=== PATIENT | male | born 1945 | race Caucasian/White ===

== ENCOUNTER 2019-06-14 07:16 | Day surgery (SDC) | payer MEDICARE, BC ==
[~2019-06-14 07:16] MED LIST: Lactated Ringers 1,000 ML IV SCH; Lidocaine 1%/Sod Bicarbonate in NS 8.4% 1 ML Syringe IDERM PRN; Sodium Chloride 0.9% 10 ML Syringe FLUSH PRN
[2019-06-14] MEDS ORDERED: Lidocaine 1% 4 ML ONE (07:31)
[2019-06-14] MEDS ORDERED: fentaNYL 100 MCG/2 ML SDV ONE (07:31)
[2019-06-14] MEDS ORDERED: Propofol 200 MG/20 ML SDV ONE ×2 (07:31→08:50)
--- NOTE | 2019-06-14 08:02 | PCM.PREANE ---
Preanesthetic Assessment - Anesthesia/Transfusion/Family Hx Anesthesia History: Prior Anesthesia Without Reaction Family History of Anesthesia Reaction: No - Review of Systems General: No Symptoms Pulmonary: No Symptoms Cardiovascular: No Symptoms Gastrointestinal: No Symptoms Neurological: No Symptoms Other: Reports: None - Physical Assessment NPO Status Date: 06/14/19 NPO Status Time: 03:50 Vital Signs: Last Vital Signs Temp 36.8 C 06/14/19 07:20 Pulse 89 06/14/19 07:20 Resp 16 06/14/19 07:20 BP 118/72 06/14/19 07:20 Pulse Ox 96 06/14/19 07:20 Height: 1.7 m Weight: 67.585 kg ASA Class: 1 Mental Status: Alert & Oriented x3 Airway Class: Mallampati = 2 Dentition: Reports: Partial (Upper) Thyro-Mental Finger Breadths: 3 Mouth Opening Finger Breadths: 3 ROM/Head Extension: Full Lungs: Clear to Auscultation, Normal Respiratory Effort Cardiovascular: Regular Rate, Regular Rhythm - Allergies Allergies/Adverse Reactions: Allergies Allergy/AdvReac Type Severity Reaction Status Date / Time No Known Allergies Allergy Verified 06/11/19 12:48 - Acknowledgements Anesthesia Type Planned: MAC Pt an Appropriate Candidate for the Planned Anesthesia: Yes Alternatives and Risks of Anesthesia Discussed w Pt/Guardian: Yes Pt/Guardian Understands and Agrees with Anesthesia Plan: Yes PreAnesthesia Questionnaire HEENT History: Reports: Impaired Vision Other HEENT History: wears glasses, has partial Cardiovascular History: Reports: None Respiratory History: Reports: None Gastrointestinal History: Reports: Colon Polyp Genitourinary History: Reports: None 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 Musculoskeletal History: Reports: None Neurological History: Reports: None Psychiatric History: Reports: None Endocrine/Metabolic History: Reports: None Hematologic History: Reports: None Immunologic History: Reports: None Oncologic (Cancer) History: Reports: None Dermatologic History: Reports: None - Past Surgical History Head Surgeries/Procedures: Reports: None HEENT Surgical History: Reports: Tonsillectomy Cardiovascular Surgical History: Reports: None Respiratory Surgical History: Reports: None GI Surgical History: Reports: Colonoscopy Female Surgical History: Reports: None Male Surgical History: Reports: None Endocrine Surgical History: Reports: None Neurological Surgical History: Reports: None Oncologic Surgical History: Reports: None Dermatological Surgical History: Reports: None - SUBSTANCE USE Smoking Status *Q: Never Smoker Recreational Drug Use History: No - HOME MEDS Home Medications: Home Meds Aloe Vera 5,000 mg PO DAILY 06/11/19 [History] Cholecalciferol (Vitamin D3) [Vitamin D3] 2,000 unit PO DAILY 06/11/19 [History] Cyanocobalamin (Vitamin B12) [Vitamin B12] 1,000 mcg PO DAILY 06/11/19 [History] Docusate Sodium [Colace] 100 mg PO DAILY 06/11/19 [History] Fish Oil/[place]-3 Fatty Acids [Fish Oil 1,000 MG] 1 each PO DAILY 06/11/19 [ History] Lactobacillus Acidophilus [Probiotic] 1 each PO DAILY 06/11/19 [History] Magnesium 250 mg PO DAILY 06/11/19 [History] Vitamin E 400 unit PO DAILY 06/11/19 [History] - CURRENT (IN HOUSE) MEDS Current Meds: Current Medications Lactated Ringer's (Ringers, Lactated) 1,000 mls @ 125 mls/hr IV ASDIRECTED TREVOR Stop: 06/14/19 23:00 Last Admin: 06/14/19 07:35 Dose: 125 mls/hr Lidocaine/Sodium Bicarbonate (Buffered Lidocaine 1% In Ns 8.4%) 0.25 ml IDERM ONETIME PRN PRN Reason: Prior to IV Start Stop: 06/14/19 18:00 Last Admin: 06/14/19 07:35 Dose: 0.25 ml Sodium Chloride (Saline Flush) 10 ml FLUSH ASDIRECTED PRN PRN Reason: Keep Vein Open Stop: 06/14/19 18:00 Discontinued Medications Fentanyl (Sublimaze) Confirm Administered Dose 100 mcg .ROUTE .STK-MED ONE Stop: 06/14/19 07:32 Lidocaine HCl (Xylocaine-Mpf 1%) Confirm Administered Dose 4 mls @ as directed .ROUTE .STK-MED ONE Stop: 06/14/19 07:32 Propofol (Diprivan 20 Ml) Confirm Administered Dose 400 mg .ROUTE .STK-MED ONE Stop: 06/14/19 07:32
--- NOTE | 2019-06-14 09:20 | PCM.PRNOTE ---
- Free Text/Narrative Note: Date: 06/14/2019 Procedure: colonoscopy Endoscopist: Duke Rebollar MD Findings: two adjacent polyps in the cecum near the ileocecal valve snare biopsied. Diminutive polyp further distal in the cecum biopsied. Near the hepatic flexure, there was a sizeable raised, lobulated and indurated lesion with abnormal mucosal appearance and central ulceration suspicious for malignancy. Several sample biopsies were obtained with forceps and submucosal injection of tattoo ink just distal to the lesion was performed. The prep was fair. There was moderate diverticular disease of the sigmoid colon noted. Detailed Report: The patient was taken to the endoscopy suite and placed in left lateral decubitus position. Timeout was performed, monitored anesthesia care was initiated. The anus was inspected, with no gross abnormalities noted. Digital rectal exam was unremarkable, no lesions were palpated, the prostate felt normal. A lubricated colonoscope was then inserted and advanced all the way to the cecum. The ileocecal valve was visualized. The prep was noted to be fair, with moderate amount of debris. 2 adjacent larger polypoid lesions were noted in the cecum near the ileocecal valve; these were biopsied with a snare. A tiny subcentimeter polyp just distal to this site was biopsied with forceps, and the base was fulgurated. At approximately the level of the hepatic flexure , there was a large abnormal lesion noted. There was ulceration at center, with active hemorrhage from recent scope trauma. Surrounding the ulcer, was an irregular lobulated mucosal appearance with induration. The base of the lesion blended in with the wall of the colon. Several sample biopsies with forceps were obtained from different parts of the lesion. Due to suspicion for malignancy, tattoo ink was injected just distal to the site of the lesion submucosally. No additional lesions were noted aside from sigmoid diverticular disease on withdrawal of the scope. Retroflexion of the scope within the rectum revealed no significant hemorrhoidal disease or other pathology. The patient tolerated the procedure well. Duke Rebollar MD General Surgery
--- NOTE | 2019-06-14 09:59 | PCM48HPAN ---
Post Anesthesia Note - EVALUATION WITHIN 48HRS OF ANESTHETIC Vital Signs in Normal Range: Yes Patient Participated in Evaluation: Yes Respiratory Function Stable: Yes Airway Patent: Yes Cardiovascular Function Stable: Yes Hydration Status Stable: Yes Pain Control Satisfactory: Yes Nausea and Vomiting Control Satisfactory: Yes Mental Status Recovered: Yes Vital Signs: Last Vital Signs Temp 36.2 C 06/14/19 09:15 Pulse 81 06/14/19 09:15 Resp 16 06/14/19 09:15 BP 106/72 06/14/19 09:15 Pulse Ox 94 L 06/14/19 09:15
== END 2019-06-14 10:05 | disposition home or self-care (01) ==
LOC: JD.SDS 07:16
PROVIDERS: ATTEND Surgery
DX: Z12.11 Encounter for screening for malignant neoplasm of colon (principal); D12.0 Benign neoplasm of cecum; C18.3 Malignant neoplasm of hepatic flexure; Z86.010 Personal history of colon polyps; Z87.891 Personal history of nicotine dependence; Z79.899 Other long term (current) drug therapy
CPT/HCPCS: 45381; 45385; J2001; J2704; J3010; J7120; 00812; 45380

== ENCOUNTER 2019-07-13 07:11 | Inpatient (IN) | payer MEDICARE, BC ==
[~2019-07-13 07:11] MED LIST changes: +Heparin Sodium 5,000 Units/ML Vial SUBCUT SCH
[2019-07-13] MEDS ORDERED: Bupivacaine 0.5%/EPINEPHrine 1:200,000 50 ML MDV ONE (07:19)
[2019-07-13] MEDS ORDERED: Rocuronium 50 MG/5 ML Vial ONE (07:29)
[2019-07-13] MEDS ORDERED: Propofol 200 MG/20 ML SDV ONE (07:30)
[2019-07-13] MEDS ORDERED: Midazolam 1 MG/ML 2 ML SDV ONE (07:31)
[2019-07-13] MEDS ORDERED: fentaNYL 100 MCG/2 ML SDV ONE ×2 (07:33→08:49)
--- NOTE | 2019-07-13 07:49 | PCM.PREANE ---
Preanesthetic Assessment - Anesthesia/Transfusion/Family Hx Anesthesia History: Prior Anesthesia Without Reaction Transfusion History: No Prior Transfusion(s) Intubation History: Unknown - Review of Systems General: No Symptoms Pulmonary: No Symptoms Cardiovascular: No Symptoms Gastrointestinal: No Symptoms Neurological: No Symptoms Other: Reports: None - Physical Assessment NPO Status Date: 07/12/19 NPO Status Time: 22:00 Vital Signs: Last Vital Signs Temp 98.0 F 07/13/19 07:20 Pulse 86 07/13/19 07:20 Resp 16 07/13/19 07:20 BP 115/71 07/13/19 07:20 Pulse Ox 97 07/13/19 07:20 Height: 1.7 m Weight: 64.864 kg ASA Class: 2 Mental Status: Alert & Oriented x3 Airway Class: Mallampati = 2 Dentition: Reports: Broken Tooth/Teeth, Missing Tooth/Teeth Thyro-Mental Finger Breadths: 3 Mouth Opening Finger Breadths: 3 ROM/Head Extension: Full Lungs: Clear to Auscultation, Normal Respiratory Effort Cardiovascular: Regular Rate, Regular Rhythm - Allergies Allergies/Adverse Reactions: Allergies Allergy/AdvReac Type Severity Reaction Status Date / Time No Known Allergies Allergy Verified 07/12/19 14:00 - Acknowledgements Anesthesia Type Planned: General Anesthesia, Epidural (for postoperative pain control) Pt an Appropriate Candidate for the Planned Anesthesia: Yes Alternatives and Risks of Anesthesia Discussed w Pt/Guardian: Yes Pt/Guardian Understands and Agrees with Anesthesia Plan: Yes PreAnesthesia Questionnaire HEENT History: Reports: None Other HEENT History: wears glasses, has partial Gastrointestinal History: Reports: Other (See Below) Other Gastrointestinal History: Adenocarcinoma colon Oncologic (Cancer) History: Reports: Other (See Below) Other Oncologic History: Adenocarcinoma Colon - Past Surgical History Head Surgeries/Procedures: Reports: None HEENT Surgical History: Reports: Tonsillectomy Cardiovascular Surgical History: Reports: None Respiratory Surgical History: Reports: None GI Surgical History: Reports: Colonoscopy Male Surgical History: Reports: None Endocrine Surgical History: Reports: None Neurological Surgical History: Reports: None Musculoskeletal Surgical History: Reports: None Oncologic Surgical History: Reports: None Dermatological Surgical History: Reports: None - SUBSTANCE USE Smoking Status *Q: Never Smoker Tobacco Use Within Last Twelve Months: No Second Hand Smoke Exposure: No Recreational Drug Use History: No - HOME MEDS Home Medications: Home Meds Aloe Vera 5,000 mg PO DAILY 06/11/19 [History] Cholecalciferol (Vitamin D3) [Vitamin D3] 2,000 unit PO DAILY 06/11/19 [History] Cyanocobalamin (Vitamin B12) [Vitamin B12] 2,500 mcg PO DAILY 06/11/19 [History] Docusate Sodium [Colace] 100 mg PO BID 06/11/19 [History] Fish Oil/[place]-3 Fatty Acids [Fish Oil 1,000 MG] 1,000 mg PO DAILY 06/11/19 [ History] Lactobacillus Acidophilus [Probiotic] 1 cap PO DAILY 06/11/19 [History] Magnesium 500 mg PO DAILY 06/11/19 [History] Vitamin E 400 unit PO DAILY 06/11/19 [History] Neomycin [Neomycin Sulfate] 1,000 mg PO ASDIRECTED 07/12/19 [History] metroNIDAZOLE [Metronidazole] 500 mg PO ASDIRECTED 07/12/19 [History] polyethylene glycoL 3350 [MiraLAX] 17 gm PO TID 07/12/19 [History] - CURRENT (IN HOUSE) MEDS Current Meds: Current Medications Heparin Sodium (Porcine) (Heparin Sodium) 5,000 units SUBCUT ONETIME TREVOR Stop: 07/13/19 12:00 Lactated Ringer's (Ringers, Lactated) 1,000 mls @ 125 mls/hr IV ASDIRECTED TREVOR Stop: 07/13/19 23:00 Cefoxitin Sodium 1 gm/ Premix 50 mls @ 100 mls/hr IV ONETIME ONE Stop: 07/13/19 08:29 Lidocaine/Sodium Bicarbonate (Buffered Lidocaine 1% In Ns 8.4%) 0.25 ml IDERM ONETIME PRN PRN Reason: Prior to IV Start Stop: 07/13/19 18:00 Sodium Chloride (Saline Flush) 10 ml FLUSH ASDIRECTED PRN PRN Reason: Keep Vein Open Stop: 07/13/19 18:00 Discontinued Medications Bupivacaine HCl/Epinephrine Bitart (Marcaine 0.5%/Epinephrine 1:200,000) Confirm Administered Dose 50 ml .ROUTE .STK-MED ONE Stop: 07/13/19 07:20 Fentanyl (Sublimaze) Confirm Administered Dose 100 mcg .ROUTE .STK-MED ONE Stop: 07/13/19 07:34 Midazolam HCl (Versed 1 Mg/Ml) Confirm Administered Dose 2 mg .ROUTE .STK-MED ONE Stop: 07/13/19 07:32 Propofol (Diprivan 20 Ml) Confirm Administered Dose 200 mg .ROUTE .STK-MED ONE Stop: 07/13/19 07:31 Rocuronium Conifer (Zemuron) Confirm Administered Dose 50 mg .ROUTE .STK-MED ONE Stop: 07/13/19 07:30
[2019-07-13] MEDS ORDERED: cefOXitin 1 GM in Premix Bag 1 BAG IV ONE (08:00)
[2019-07-13] MEDS ORDERED: Bupivacaine 0.5% 10 ML SDV ONE (08:24)
--- NOTE | 2019-07-13 09:54 | PCM.PRNOTE ---
- Free Text/Narrative Note: Epidural placement for intraoperative and postoperative pain management Surgery: Partial right colectomy Requesting surgeon: Dr. Duke Tse Patient has been interviewed, risk/benefits/alternatives discussed, questions answered. Vital signs and labs reviewed. Consent signed. IVF bolus given. Patient is sitting on the bed, , positioning using pillow . Time out performed at 07:57. Mask, head cover, sterile gloves on. Betadine preparation x3 and sterile drape. Local infiltration with 1% Lidocaine at L1 - T12 interspace. 1 x attempt with 17G Tuohy needle. Loss of Resistance at 5 cm. No fluid obtained, no blood obtained. No paresthesia encountered. Easy threading in of 19G catheter. Secured at 13 cm at the skin. Test dose given 1.5% Lidocaine with 1:200K epinephrine, negative for intravascular/ negative for intrathecal placement. Patient had a transient hypotension and dizziness, additional IVF bolus given and the patient was positioned supine. Patient reported improvement. Vital signs stable. Catheter dressing applied and filter attached. Start of procedure: 07:57 End of procedure: 08:10
[2019-07-13] MEDS ORDERED: Phenylephrine 1% 10 MG/ML SDV ONE (10:11)
[2019-07-13] MEDS ORDERED: Lactated Ringers 1,000 ML ONE ×2 (10:13)
[2019-07-13] MEDS ORDERED: Ondansetron 4 MG/2 ML SDV ONE (10:28)
[2019-07-13] MEDS ORDERED: diphenhydrAMINE 50 MG/ML SDV IVPUSH PRN (10:37)
[2019-07-13] MEDS ORDERED: fentaNYL 100 MCG/2 ML SDV EPIDUR PRN (10:37)
[2019-07-13] MEDS ORDERED: ePHEDrine 50 MG/ML SDV IVPUSH PRN (10:37)
[2019-07-13] MEDS ORDERED: Ondansetron 4 MG in Sodium Chloride 0.9% 50 ML IV ONE (11:26)
[2019-07-13] MEDS ORDERED: Simethicone 80 MG Tab.Chew PO PRN (11:27)
--- NOTE | 2019-07-13 11:30 | PCM.POSTAN ---
POST ANESTHESIA ASSESSMENT - MENTAL STATUS Mental Status: Alert, Oriented - VITAL SIGNS Vital Signs: Last Vital Signs Temp 97.2 F 07/13/19 11:25 Pulse 74 07/13/19 11:25 Resp 11 L 07/13/19 11:25 BP 103/69 07/13/19 11:25 Pulse Ox 98 07/13/19 11:25 - RESPIRATORY Respiratory Status: Respiratory Rate WNL, Airway Patent, O2 Saturation Stable, Supplemental Oxygen - CARDIOVASCULAR CV Status: Pulse Rate WNL, Blood Pressure Stable - GASTROINTESTINAL GI Status: No Symptoms - PAIN Pain Score: 0 (epidural dosed) - POST OP HYDRATION Hydration Status: Adequate & Stable
--- NOTE | 2019-07-13 11:33 | PCM.PRNOTE ---
- Free Text/Narrative Note: Date: 07/13/2019 Operation: Laparoscopic right colectomy Surgeon: Duke Rebollar MD Indications: early stage moderately differentiated adenocarcinoma detected on screening colonoscopy Findings: Tattoo ink marked the lesion near the hepatic flexure. The colon was well mobilized, and a stapled side to side ileocolic anastomosis was created without tension. There were two resection specimens; additional 8 cm of transverse colon was taken as the lesion within the initial specimen appeared close to the distal staple line. Detailed Report: The patient was taken to the operating room and placed in supine position. Timeout was performed, and general endotracheal anesthesia was initiated. The abdomen was clipped, and a Vaca catheter placed. The left arm was tucked, and the abdomen then prepped and draped in usual sterile fashion. Local anesthetic was injected at [place]'s point, and a stab incision was made to permit insertion of the Veress needle into the peritoneal cavity. The cavity was insufflated with CO2 at a pressure of 15 cmH2O, and a 12 mm laparoscopic port was inserted at the midline just superior to the umbilicus. The 10 mm 30 degree laparoscope was inserted and abdominal contents were inspected. There was evidence of prior tattooing from colonoscopy. The patient was repositioned in steep Trendelenburg, and rotated towards his left side. Additional ports were placed; 5 mm ports along the semilunar line on the left side, inferior and superior to the level of the umbilicus. Graspers were used to reflect the small bowel into the left upper quadrant, giving good visualization of the ascending colon. An additional port for the assistant women's basketball coach was placed at the subxiphoid area. Traction was placed on the cecum anteriorly and inferiorly, and the ileocolic pedicle was readily visible. A window was made in the mesentery overlying the vessel, just posterior to its base. This plane was developed with the [place] LigaSure, and the mesocolon was from the retroperitoneum working medially to laterally. The ileocolic pedicle was then taken at its base using the LigaSure. The terminal ileum was divided approximately 10 cm proximal to the ileocecal valve using the powered 16mm laparoscopic linear stapler. Remaining lateral attachments of the ascending colon were taken with the LigaSure up towards the hepatic flexure. The tattoo aicha appeared to be just distal to the hepatic flexure. Next, attention was turned to mobilization of the proximal transverse colon. An additional 5 mm port was placed in the left lower quadrant to allow for optimal dissection. The omentum was taken off of the proximal transverse colon at its point of attachment, working lateral to proximal. The colon was mobilized from lateral to medial, taking care to preserve its blood supply and protect the retroperitoneal structures including the duodenum, which was well visualized. With ample mobilization of the transverse colon, we then prepared to exteriorized the bowel. A small vertical midline periumbilical incision was extended from the 12 mm port placement site. The fascial opening measured approximately 7 cm. The distal portion of the stapled ileum, which had been grasped with a laparoscopic grasper previously, was passed up into the midline incision. The specimen was easily exteriorized, with about half of the transverse colon able to be brought out through the incision. The proximal transverse mesentery was divided with the LigaSure, and the powered stapler was used to divide the transverse colon a few centimeters beyond the tattoo site. However, on palpating the tumor within the specimen, the decision was made to take additional: As there was plenty of mobility, and so approximately 8 cm more of distal transverse colon and its associated mesentery was taken using the LigaSure and the powered stapler. The specimen was placed in the back table to be examined after conclusion of the case. The stapled end of the ileum was brought out through the midline incision, and the transverse colon and ileum were aligned at their antimesenteric aspect. A [id number] stapled anastomosis was then made using the powered stapler, 60 mm blue load. Carmen clamps were then used to align the edges of the remaining enterotomy, and a 30 mm TA blue load stapler was used to complete the anastomosis. The anastomosis felt patent on manual exam, and an additional Vicryl stitch was placed at the crotch of the staple line in order to help reduce tension. With the bowel reduced into the abdomen, there appeared to be no tension, or twisting of the mesentery. There did appear to be good blood supply at the level of the staple line on both the colon and ileum. At this point, the abdomen was irrigated with warm saline and suctioned. Gloves were changed, and the closing instruments tray was brought onto the field. The midline fascia at the larger incision was closed with running 0 PDS suture. Laparoscopic sites were closed with single interrupted 4-0 Vicryl suture. The skin at the midline incision was closed with a few interrupted deep dermal Vicryl stitches. Greg was inserted into the wound between stitches to allow for drainage. Mastisol and Steri-Strips were applied for dressings at all incision sites, and the midline incision was covered with gauze and tape. The specimen was then opened up on the back table, and an indurated lesion about the size of a quarter with central dimpling and ulceration was identified. Duke Rebollar MD General Surgery
[2019-07-13] MEDS ORDERED: Ondansetron 4 MG/2 ML SDV IV ONE (11:45)
[2019-07-13] MEDS: Bupivacaine/fentaNYL/NS 100 ML Bag EPIDUR PRN (12:14)
[2019-07-13] MEDS: Lactated Ringers 1,000 ML IV SCH ×3 (13:04→18:54)
[2019-07-13] MEDS ORDERED: Lactated Ringers 1,000 ML IV SCH (14:15)
[2019-07-13] MEDS: Heparin Sodium 5,000 Units/ML Vial SUBCUT SCH (17:05)
[2019-07-14] MEDS: Heparin Sodium 5,000 Units/ML Vial SUBCUT SCH ×3 (02:23→16:12)
[2019-07-14] MEDS: Lactated Ringers 1,000 ML IV SCH (02:26)
[2019-07-14] MEDS: D5 1/2 NS w/ 20 mEq/L KCl 1,000 ML IV SCH ×2 (09:27→22:39)
--- NOTE | 2019-07-14 09:50 | PCM48HPAN ---
Post Anesthesia Note - EVALUATION WITHIN 48HRS OF ANESTHETIC Vital Signs in Normal Range: Yes Patient Participated in Evaluation: Yes Respiratory Function Stable: Yes Airway Patent: Yes Cardiovascular Function Stable: Yes Hydration Status Stable: Yes Pain Control Satisfactory: Yes Nausea and Vomiting Control Satisfactory: Yes Mental Status Recovered: Yes Vital Signs: Last Vital Signs Temp 96.7 F L 07/14/19 08:00 Pulse 86 07/14/19 06:01 Resp 16 07/14/19 08:00 BP 110/59 L 07/14/19 08:00 Pulse Ox 98 07/14/19 08:00 - COMMENTS/OBSERVATIONS Free Text/Narrative:: Assessment and re-evaluation of the patient receiving a continuous epidural drip Patient is on her postoperative day 1. Vitas signs stable. Epidural site is intact. Current rate of Bupivacaine 0.125% with Fentanyl 2mcg/ml is without change, 2mls/hr (PCEA bolus of 1.5 mls q 20 min). Patient is stable hemodynamically at this rate and tolerating well. No lower extremities weakness or numbness noted. Patient has been assessed by PT/OT and ambulated with minimal assistance in the hallway. Plan is not to remove epidural catheter at this time. We will reevaluate the patient within the next 24 hours. Teofilo Styles CRNA.
[2019-07-14] MEDS ORDERED: Ondansetron 4 MG/2 ML SDV IVPUSH PRN (14:26)
--- NOTE | 2019-07-14 21:08 | PCM.SN ---
- Free Text/Narrative Note: POD 1 s/p laparoscopic right colectomy for adenocarcinoma. S: minimal pain. Tolerating clear liquids. Voided after barcenas removal. Ambulating. Reports small, formed BM today. O: AF-VSS Gen: awake and alert, no distress Pulm: comfortable on room air CV: RRR, palpable radial pulse Abd: incision sites clean, dry, intact. moderate abdominal distention. Appropriately tender Neuro: epidural catheter in place; BLE full range of motion and full strength A: doing well on POD 1, with evidence of ileus. No nausea/vomiting. P: -analgesia per anethesia team/ epidural remains in place with good pain control -IS, OOB. PT/OT consulted -switch IVF to maintenance D5 1/2 NS w KCl @ 75 cc/hr -regular diet as tolerated. zofran, simethicone prn. Await return of bowel function -monitor urine output -heparin 5,000 u SC q8h DVT ppx
[2019-07-15] MEDS: Heparin Sodium 5,000 Units/ML Vial SUBCUT SCH ×3 (00:08→18:04)
[2019-07-15] MEDS: Bupivacaine/fentaNYL/NS 100 ML Bag EPIDUR PRN (05:09)
--- NOTE | 2019-07-15 13:24 | PCM48HPAN ---
Post Anesthesia Note - EVALUATION WITHIN 48HRS OF ANESTHETIC Vital Signs in Normal Range: Yes Patient Participated in Evaluation: Yes Respiratory Function Stable: Yes Airway Patent: Yes Cardiovascular Function Stable: Yes Hydration Status Stable: Yes Pain Control Satisfactory: Yes Nausea and Vomiting Control Satisfactory: Yes Mental Status Recovered: Yes Vital Signs: Last Vital Signs Temp 98.8 F 07/15/19 12:00 Pulse 86 07/14/19 06:01 Resp 16 07/15/19 12:00 BP 111/70 07/15/19 12:00 Pulse Ox 96 07/15/19 12:00 - COMMENTS/OBSERVATIONS Free Text/Narrative:: Assessment and re-evaluation of the patient receiving a continuous epidural drip Patient is on her postoperative day 2. Vitas signs stable. Epidural site is intact. Current rate of Bupivacaine 0.125% with Fentanyl 2mcg/ml is without change, 2mls/hr (PCEA bolus of 1.5 mls q 20 min). Patient is stable hemodynamically at this rate and tolerating well. No lower extremities weakness or numbness noted. Patient has been assessed by PT/OT and ambulated with minimal assistance in the hallway. Plan is to hold the am dose of Heparin SC on 07/16/2019 and remove epidural catheter in am. We will reevaluate the patient within the next 24 hours.
[2019-07-16] MEDS: Heparin Sodium 5,000 Units/ML Vial SUBCUT SCH ×2 (00:04→08:18)
--- NOTE | 2019-07-16 08:42 | PCM48HPAN ---
Post Anesthesia Note - EVALUATION WITHIN 48HRS OF ANESTHETIC Vital Signs in Normal Range: Yes Patient Participated in Evaluation: Yes Respiratory Function Stable: Yes Airway Patent: Yes Cardiovascular Function Stable: Yes Hydration Status Stable: Yes Pain Control Satisfactory: Yes Nausea and Vomiting Control Satisfactory: Yes Mental Status Recovered: Yes Vital Signs: Last Vital Signs Temp 97.8 F 07/16/19 08:00 Pulse 86 07/14/19 06:01 Resp 14 07/16/19 08:00 BP 112/70 07/16/19 08:00 Pulse Ox 93 L 07/16/19 08:00 - COMMENTS/OBSERVATIONS Free Text/Narrative:: Assessment and re-evaluation of the patient receiving a continuous epidural drip Patient is on her postoperative day 3. Vitas signs stable. Per discharge planning, the epidural catheter has been removed. Tip is intact. Bandaid dressing applied. No lower extremities weakness or numbness noted. Patient may resume his SC Heparin at 12 pm. This concludes anesthesia services management of the patient.
--- NOTE | 2019-07-16 09:10 | PCM.DCSUM1 ---
Discharge Summary - Hospital Course Free Text/Narrative:: Mr. Meehan is a 74 yo man who underwent scheduled laparoscopic right colectomy for adenocarcinoma on 07/12. The operation went well, and his post-operative hospital stay was uneventful. He had an epidural placed pre-operatively and analgesic effect was excellent; the epidural catheter was removed on POD 3, the morning of discharge date. On POD 1 he had a bowel movement and subsequently passed flatus, though on POD 1 he was moderately distended with tympanitic abdomen. He was evaluated by physical therapy and occupational therapy, and was able to ambulate without difficulty. He tolerated a regular diet starting on POD 1. He was normalized the morning of POD 3, with evidence of active bowel function. He was deemed fit for discharge to home at that time. Diagnosis: Stroke: No - Discharge Data Discharge Date: 07/16/19 Discharge Disposition: Home, Self-Care 01 Condition: Good - Referral to Home Health Primary Care Physician: Ace Narvaez PA-C - Patient Summary/Data Operative Procedure(s) Performed: laparoscopic right colectomy with ileocolic anastomosis Consults: Consultations 07/13/19 17:42 OT Evaluation and Treatment [CONS] Routine PT Evaluation and Treatment [CONS] Routine - Patient Instructions Diet: Usual Diet as Tolerated Activity: As Tolerated, No Lifting Over 10 Pounds Showering/Bathing: May Shower Wound/Incision Care: Keep Operative Site/Wound Site Clean and Dry Notify Provider of: Fever, Increased Pain, Swelling and Redness, Drainage, Nausea and/or Vomiting - Discharge Plan *PRESCRIPTION DRUG MONITORING PROGRAM REVIEWED*: Not Applicable *COPY OF PRESCRIPTION DRUG MONITORING REPORT IN PATIENT LEIGHA: Not Applicable Prescriptions/Med Rec: oxyCODONE 5 mg PO Q6H PRN #10 tab PRN Reason: Pain Home Medications: Home Meds Aloe Vera 5,000 mg PO DAILY 06/11/19 [History] Cholecalciferol (Vitamin D3) [Vitamin D3] 2,000 unit PO DAILY 06/11/19 [History] Cyanocobalamin (Vitamin B12) [Vitamin B12] 2,500 mcg PO DAILY 06/11/19 [History] Docusate Sodium [Colace] 100 mg PO BID 06/11/19 [History] Fish Oil/[place]-3 Fatty Acids [Fish Oil 1,000 MG] 1,000 mg PO DAILY 06/11/19 [ History] Lactobacillus Acidophilus [Probiotic] 1 cap PO DAILY 06/11/19 [History] Magnesium 500 mg PO DAILY 06/11/19 [History] Vitamin E 400 unit PO DAILY 06/11/19 [History] oxyCODONE 5 mg PO Q6H PRN #10 tab 07/16/19 [Rx] Oxygen Therapy Mode: Room Air Patient Handouts: Laparoscopic Colectomy, Laparoscopic Colectomy, Care After Referrals: Ace Narvaez, PANichol [Primary Care Provider] - Duke Rebollar MD [Physician] - - Discharge Summary/Plan Comment DC Time >30 min.: No Discharge Summary/Plan Comment: Plan for follow up in Dr. Rebollar's clinic on 07/26/2019 - Patient Data Vitals - Most Recent: Last Vital Signs Temp 36.6 C 07/16/19 08:00 Pulse 86 07/14/19 06:01 Resp 14 07/16/19 08:00 BP 112/70 07/16/19 08:00 Pulse Ox 93 L 07/16/19 08:00 Weight - Most Recent: 70.4 kg I&O - Last 24 hours: Intake & Output 07/15/19 07/16/19 07/16/19 22:59 06:59 14:59 Intake Total 995 Output Total 200 Balance 995 -200 Med Orders - Current: Current Medications Diphenhydramine HCl (Benadryl) 25 mg IVPUSH Q6H PRN PRN Reason: pruritis Ephedrine Sulfate (Ephedrine Sulfate) 5 mg IVPUSH Q5M PRN PRN Reason: Hypotension Fentanyl (Sublimaze) 100 mcg EPIDUR Q3H PRN PRN Reason: Pain Fentanyl/Bupivacaine HCl (Fentanyl/Bupivacaine/Ns 2 Mcg-0.125% 100 Ml) 100 ml EPIDUR ASDIRECTED PRN PRN Reason: Pain Last Admin: 07/15/19 05:09 Dose: 100 ml Lactated Ringer's (Ringers, Lactated) 1,000 mls @ 999 mls/hr IV ASDIRECTED TREVOR Last Admin: 07/13/19 18:39 Dose: 999 mls/hr Ondansetron HCl (Zofran) 4 mg IVPUSH Q4HR PRN PRN Reason: Nausea Last Admin: 07/14/19 14:34 Dose: 4 mg Simethicone (Simethicone) 80 mg PO Q6H PRN PRN Reason: Gas Last Admin: 07/14/19 18:16 Dose: 80 mg Discontinued Medications Bupivacaine HCl (Sensorcaine-Mpf 0.5%) Confirm Administered Dose 10 ml .ROUTE .RUST-MED ONE Stop: 07/13/19 08:25 Bupivacaine HCl/Epinephrine Bitart (Marcaine 0.5%/Epinephrine 1:200,000) Confirm Administered Dose 50 ml .ROUTE .[facility] ONE Stop: 07/13/19 07:20 Last Admin: 07/13/19 08:51 Dose: 36 ml Fentanyl (Sublimaze) Confirm Administered Dose 100 mcg .ROUTE .STK-MED ONE Stop: 07/13/19 07:34 Fentanyl (Sublimaze) Confirm Administered Dose 100 mcg .ROUTE .[facility] ONE Stop: 07/13/19 08:50 Heparin Sodium (Porcine) (Heparin Sodium) 5,000 units SUBCUT ONETIME [facility] Stop: 07/13/19 12:00 Last Admin: 07/13/19 08:50 Dose: 5,000 units Heparin Sodium (Porcine) (Heparin Sodium) 5,000 units SUBCUT Q8H [facility] Last Admin: 07/16/19 08:18 Dose: Not Given Lactated Ringer's (Ringers, Lactated) 1,000 mls @ 125 [facility]ls[facility]: 07/13/19 23:00 Last Admin: 07/13/19 07:40 Dose: 125 mls/hr Cefoxitin Sodium 1 gm/ Premix 50 mls @ 100 mls/hr IV ONETIME ONE Stop: 07/13/19 08:29 Last Admin: 07/13/19 08:25 Dose: 100 mls/hr Lactated Ringer's (Ringers, Lactated) Confirm Administered Dose 1,000 mls @ as directed .ROUTE .STK-MED ONE Stop: 07/13/19 10:14 Lactated Ringer's (Ringers, Lactated) Confirm Administered Dose 1,000 mls @ as directed .ROUTE .[facility] ONE Stop: 07/13/19 10:14 Lactated Ringer's (Ringers, Lactated) 1,000 mls @ 100 mls/hr IV ASDIRECTED [facility] Last Admin: 07/14/19 02:26 Dose: 100 mls/hr Potassium Chloride/Dextrose/Sod Cl (D5 1/2 Ns W/ 20 Meq/L Kcl) 1,000 mls @ 75 mls/hr IV ASDIRECTED TREVOR Last Admin: 07/14/19 22:39 Dose: 75 mls/hr Lidocaine/Sodium Bicarbonate (Buffered Lidocaine 1% In Ns 8.4%) 0.25 ml IDERM ONETIME PRN PRN Reason: Prior to IV Start Stop: 07/13/19 18:00 Last Admin: 07/13/19 07:39 Dose: 0.25 ml Midazolam HCl (Versed 1 Mg/Ml) Confirm Administered Dose 2 mg .ROUTE .STK-MED ONE Stop: 07/13/19 07:32 Miscellaneous Medication (Phenylephrine 1 Mg/10 Ml-Ns) Confirm Administered Dose 1 mg IV .STK-MED ONE Stop: 07/13/19 09:02 Miscellaneous Medication (Phenylephrine 1 Mg/10 Ml-Ns) Confirm Administered Dose 1 mg IV .STK-MED ONE Stop: 07/13/19 09:02 Miscellaneous Medication (Phenylephrine 1 Mg/10 Ml-Ns) Confirm Administered Dose 1 mg IV .STK-MED ONE Stop: 07/13/19 09:32 Ondansetron HCl (Zofran) Confirm Administered Dose 4 mg .ROUTE .STK-MED ONE Stop: 07/13/19 10:29 Ondansetron HCl (Zofran) 4 mg IV ONETIME ONE Stop: 07/13/19 11:46 Last Admin: 07/13/19 13:05 Dose: Not Given Phenylephrine HCl ([place]-Synephrine) Confirm Administered Dose 10 mg .ROUTE .STK- MED ONE Stop: 07/13/19 10:12 Propofol (Diprivan 20 Ml) Confirm Administered Dose 200 mg .ROUTE .STK-MED ONE Stop: 07/13/19 07:31 Rocuronium [place] (Zemuron) Confirm Administered Dose 50 mg .ROUTE .STK-MED ONE Stop: 07/13/19 07:30 Sodium Chloride (Saline Flush) 10 ml FLUSH ASDIRECTED PRN PRN Reason: Keep Vein Open Stop: 07/13/19 18:00
== END 2019-07-16 11:07 | disposition home or self-care (01) | DRG 331 ==
LOC: JD.MS 07:11 → JD.ICU 09:03
PROVIDERS: ADMIT Surgery; ATTEND Surgery
PROC: 0DTF4ZZ Resection of Right Large Intestine, Percutaneous Endoscopic Approach (ICD-10-PCS; principal; 2019-07-13)
DX: C18.2 Malignant neoplasm of ascending colon (principal); Z79.899 Other long term (current) drug therapy; Z90.49 Acquired absence of other specified parts of digestive tract
CPT/HCPCS: 00790; 36415; 62322; 80048; 85025; 86850; 86900; 86901; 88309; 97116-GP; 97162-GP; 97165-GO; 97535-GO; A9270-GY; J0694; J1644; J2250; J2370; J2405; J2704; J3010; J3480; J3490; J7120

== ENCOUNTER → 2020-12-07 | Day surgery (SDC) | payer MEDICARE, OTHER ==
[~2020-12-07] MED LIST changes: -Heparin Sodium 5,000 Units/ML Vial SUBCUT SCH; +Lidocaine 1% 4 ML ONE; +Propofol 200 MG/20 ML SDV ONE; +fentaNYL 100 MCG/2 ML SDV ONE
--- NOTE | 2020-12-07 08:34 | PCM.PREANE ---
Preanesthetic Assessment - Procedure Proposed Procedure: screening colonoscopy - Anesthesia/Transfusion/Family Hx Anesthesia History: Prior Anesthesia Without Reaction Family History of Anesthesia Reaction: No Transfusion History: No Prior Transfusion(s) Intubation History: Unknown - Review of Systems General: No Symptoms Pulmonary: No Symptoms Cardiovascular: No Symptoms Gastrointestinal: Nausea Neurological: No Symptoms Other: Reports: None - Physical Assessment NPO Status Date: 12/07/20 NPO Status Time: 04:00 Height: 1.73 m Weight: 69.5 kg ASA Class: 2 Mental Status: Alert & Oriented x3 Airway Class: Mallampati = 2 Dentition: Reports: Partial, [place](s), Broken Tooth/Teeth, Missing Tooth/Teeth Thyro-Mental Finger Breadths: 2 Mouth Opening Finger Breadths: 2 ROM/Head Extension: Full Lungs: Clear to Auscultation, Normal Respiratory Effort Cardiovascular: Regular Rate, Regular Rhythm - Allergies Allergies/Adverse Reactions: Allergies Allergy/AdvReac Type Severity Reaction Status Date / Time No Known Allergies Allergy Verified 12/06/20 16:05 - Blood Blood Available: No Product(s) Available: None - Anesthesia Plan Pre-Op Medication Ordered: None - Acknowledgements Anesthesia Type Planned: MAC Pt an Appropriate Candidate for the Planned Anesthesia: Yes Alternatives and Risks of Anesthesia Discussed w Pt/Guardian: Yes Pt/Guardian Understands and Agrees with Anesthesia Plan: Yes PreAnesthesia Questionnaire HEENT History: Reports: None, Impaired Vision Other HEENT History: wears glasses, has partial upper. Cardiovascular History: Reports: None Respiratory History: Reports: None Gastrointestinal History: Reports: GERD, Other (See Below) Other Gastrointestinal History: Adenocarcinoma colon. Genitourinary History: Reports: None ELECTRIC SPOT WELDER History: Reports: None Musculoskeletal History: Reports: Arthritis Neurological History: Reports: None Psychiatric History: Reports: None Endocrine/Metabolic History: Reports: None Hematologic History: Reports: None Immunologic History: Reports: None Oncologic (Cancer) History: Reports: None, Other (See Below) Other Oncologic History: Adenocarcinoma Colon Dermatologic History: Reports: None - Infectious Disease History Infectious Disease History: Reports: Measles - Past Surgical History Head Surgeries/Procedures: Reports: None HEENT Surgical History: Reports: Oral Surgery, Tonsillectomy Other HEENT Surgeries/Procedures: [place] teeth extraction Cardiovascular Surgical History: Reports: None Respiratory Surgical History: Reports: None GI Surgical History: Reports: Colon, Colonoscopy Other GI Surgeries/Procedures: R hemicolectomy Female Surgical History: Reports: None Male Surgical History: Reports: None Endocrine Surgical History: Reports: None Neurological Surgical History: Reports: None Musculoskeletal Surgical History: Reports: None Other Musculoskeletal Surgeries/Procedures:: R ring finger fx Oncologic Surgical History: Reports: None Dermatological Surgical History: Reports: None - SUBSTANCE USE Tobacco Use Status *Q: Former Tobacco User Tobacco Use Within Last Twelve Months: No Second Hand Smoke Exposure: No Days Per Week of Alcohol Use: 1 Number of Drinks Per Day: 1 Total Drinks Per Week: 1 Recreational Drug Use History: No - HOME MEDS Home Medications: Home Meds Cholecalciferol (Vitamin D3) [Vitamin D3] 2,000 unit PO DAILY 06/11/19 [History] Cyanocobalamin (Vitamin B12) [Vitamin B12] 1,000 mcg PO DAILY 06/11/19 [History] Fish Oil/[place]-3 Fatty Acids [Fish Oil 1,000 MG] 1,000 mg PO DAILY 06/11/19 [History] Lactobacillus Acidophilus [Probiotic] 1 cap PO DAILY 06/11/19 [History] Magnesium 500 mg PO DAILY 06/11/19 [History] Vitamin E 400 unit PO DAILY 06/11/19 [History] Ubidecarenone [Coq-10] 100 mg PO DAILY 12/06/20 [History] - CURRENT (IN HOUSE) MEDS Current Meds: Current Medications Lactated Ringer's (Ringers, Lactated) 1,000 mls @ 125 mls/hr IV ASDIRECTED TREVOR Stop: 12/07/20 23:00 Lidocaine/Sodium Bicarbonate (Lidocaine 1%/Sod Bicarbonate In Ns 8.4% 1 Ml Syringe) 0.25 ml IDERM ONETIME PRN PRN Reason: Prior to IV Start Stop: 12/07/20 18:00 Sodium Chloride (Sodium Chloride 0.9% 10 Ml Syringe) 10 ml FLUSH ASDIRECTED PRN PRN Reason: Keep Vein Open Stop: 12/07/20 18:00 Discontinued Medications Lidocaine HCl (Xylocaine-Mpf 1%) Confirm Administered Dose 4 mls @ as directed .ROUTE .STK-MED ONE Stop: 12/07/20 08:04 Propofol (Propofol 200 Mg/20 Ml Sdv) Confirm Administered Dose 200 mg .ROUTE .STK-MED ONE Stop: 12/07/20 08:03
--- NOTE | 2020-12-07 09:16 | PCM.PRNOTE ---
- Free Text/Narrative Note: Date: 12/07/2020 Procedure: surveillance colonoscopy History: pT2N0 colon adenocarcinoma arising at hepatic flexure resected in June 2019. Recent CEA level slightly elevated at 3.6 ng/dL with CT abdomen and pelvis showing no evidence of disease. Endoscopist: Duke Rebollar MD Findings: excellent prep. Healthy appearing anastomosis polypoid appearance of ileal mucosa just proximal to staple line. No polyps identified otherwise. Sigmoid diverticulosis with internal hemorrhoids. Detailed Report: The patient was taken to the endoscopy suite and placed in left lateral decubitus position. Timeout was performed and monitored anesthesia care initiated. Visual inspection of the anus revealed no abnormality. Digital rectal exam was unremarkable. The colonoscope was inserted and advanced all the way to the ileocolic anastomosis at the level of the mid transverse colon. The anastomosis appeared patent and healthy. Ileal mucosa appeared to periodically prolapse into the colon, and had a somewhat polypoid appearance to it. Several biopsies at the anastomosis were obtained with cold forceps. The scope was then slowly withdrawn and colonic mucosal surfaces carefully inspected. No polyps were identified. The prep was excellent. There was extensive sigmoid diverticulosis. On retroflexion in the rectum, internal hemorrhoids were noted. Air was suctioned from the rectum prior to withdrawal of the scope. The patient tolerated the procedure well.
== END | disposition home or self-care (01) ==
LOC: JD.SDS 07:41
PROVIDERS: ATTEND Surgery
DX: Z12.11 Encounter for screening for malignant neoplasm of colon (principal); K57.30 Diverticulosis of large intestine without perforation or abscess without bleeding; K64.8 Other hemorrhoids; Z85.038 Personal history of other malignant neoplasm of large intestine; Z87.891 Personal history of nicotine dependence; Z98.890 Other specified postprocedural states; Z80.0 Family history of malignant neoplasm of digestive organs
CPT/HCPCS: 45380; 88305; J2704; J3010; J7120; 00812; 99100

== ENCOUNTER 2023-08-07 12:30 | Day surgery (SDC) | payer MEDICARE ==
[2023-08-07] MEDS: Polymyxin B/Trimethoprim 10 ML Bottle EYERT SCH (12:00)
[2023-08-07] MEDS: Brimonidine 0.2% Ophth Soln 5 ML Bottle EYERT SCH (12:05)
[2023-08-07] MEDS: Phenylephrine 2.5% Ophth Soln 2 ML Bot EYERT SCH (12:10)
[2023-08-07] MEDS: Tropicamide 1% Ophth Soln 3 ML Bottle EYERT SCH (12:15)
[~2023-08-07 12:30] MED LIST changes: -Lactated Ringers 1,000 ML IV SCH; -Lidocaine 1% 4 ML ONE; -Lidocaine 1%/Sod Bicarbonate in NS 8.4% 1 ML Syringe IDERM PRN; +Ondansetron 4 MG/2 ML SDV IVPUSH PRN; -Propofol 200 MG/20 ML SDV ONE; -Sodium Chloride 0.9% 10 ML Syringe FLUSH PRN; -fentaNYL 100 MCG/2 ML SDV ONE
[2023-08-07] MEDS: Tetracaine HCl/PF 0.5% 4 ML Bottle EYEBOTH SCH (13:07)
[2023-08-07] MEDS: Lidocaine 1% PF 2 ML SDV INJECT SCH (13:30)
[2023-08-07] MEDS: Pilocarpine 4% Ophth Soln 15 ML Bot EYERT SCH (13:45)
[2023-08-07] MEDS: Cefuroxime 10 MG/ML SYRINGE EYERT SCH (13:45)
== END 2023-08-07 13:57 | disposition home or self-care (01) ==
LOC: JD.SDS 12:30
PROVIDERS: ATTEND Ophthalmology
DX: H25.813 Combined forms of age-related cataract, bilateral (principal); H40.033 Anatomical narrow angle, bilateral; H43.811 Vitreous degeneration, right eye; H57.813 Brow ptosis, bilateral; H16.103 Unspecified superficial keratitis, bilateral; H16.223 Keratoconjunctivitis sicca, not specified as Sjogren's, bilateral; H35.3131 Nonexudative age-related macular degeneration, bilateral, early dry stage; E78.00 Pure hypercholesterolemia, unspecified; Z79.899 Other long term (current) drug therapy; Z98.890 Other specified postprocedural states
CPT/HCPCS: 66984; A9270; J0697; 00142; 99100; J3490; V2788-GY

== ENCOUNTER 2023-09-11 12:47 | Day surgery (SDC) | payer MEDICARE ==
[2023-09-11] MEDS: Polymyxin B/Trimethoprim 10 ML Bottle EYELF SCH (11:44)
[2023-09-11] MEDS: Phenylephrine 2.5% Ophth Soln 2 ML Bot EYELF SCH (11:55)
[2023-09-11] MEDS: Tropicamide 1% Ophth Soln 3 ML Bottle EYELF SCH (11:59)
[2023-09-11] MEDS: Brimonidine 0.2% Ophth Soln 5 ML Bottle EYELF SCH (12:25)
[2023-09-11] MEDS: Tetracaine HCl/PF 0.5% 4 ML Bottle EYEBOTH SCH (12:37)
[2023-09-11] MEDS: Lidocaine 1% PF 2 ML SDV INJECT SCH (13:23)
[2023-09-11] MEDS: Cefuroxime 10 MG/ML SYRINGE EYELF SCH (13:31)
[2023-09-11] MEDS: Pilocarpine 4% Ophth Soln 15 ML Bot EYELF SCH (13:37)
== END 2023-09-11 13:45 | disposition home or self-care (01) ==
LOC: JD.SDS 12:47
PROVIDERS: ATTEND Ophthalmology
DX: H26.9 Unspecified cataract (principal); K21.9 Gastro-esophageal reflux disease without esophagitis; Z79.899 Other long term (current) drug therapy
CPT/HCPCS: 66984; A9270; J0697; J3490